=== PATIENT | male | born 1930 | race Caucasian/White ===

== ENCOUNTER → 2019-08-26 | Outpatient (CLI) | payer MEDICARE, OTHER ==
[2019-02-04 11:00] VITALS: BP 97/53
[~2019-08-26] MED LIST: ACET325T9 PO; ALBU2.5V5 NEB; AMIO200T4 PO; ASPI-630 PO; ASPI325T8 PO; ASPI81TA59 PO; ATOR20TA58 PO; ATOR40TA59 PO; CALC200T23 PO; CARV20CP PO; CARV3.12 PO; CARV3.1210 PO; CARV40CP PO; CEFTRIAXONE SODIUM IVP; CIME200T18 PO; CLOP75TA PO; DOCU-109 PO; DOXY100T PO; EPLE25TA PO; EPLE25TA4 PO; FINA5TAB PO; FINA5TAB4 PO; FLUT9.9S NS; FURO-68 PO; FURO-69 PO; FURO20TA3 PO; HYDR-2761 PO; IPRA3AMP29 NEB; LACT1CAP19 PO; LATA2.5D3 OP; LINZESS145 MCG PO; LISI-338 PO; MIRA25TA PO; MULT-18 PO; MULT1TAB52 PO; NAPH15DR60 OU; NITR0.4T22 SL; NITR0.4T24 SL; OMEG1CAP2 PO; PANT20TA2 PO; PANT40TA77 PO; PIPE2.255 IV; POLY17PO29 PO; POTA20TA40 PO; RAMI5CAP33 PO; RAMI5CAP50 PO; RANI150C PO; SIMV40TA18 PO; TAMS0.4C97 PO
[2019-08-26 10:13] LABS: BASO # 0.1 x10^3/uL (0.0-0.2); BASO % 1 % (0-3); EOS # 0.1 x10^3/uL (0.0-0.7); EOS % 1 % (0-3); HEMATOCRIT 36.2 % (39.0-53.0); LYMPH # 0.6 x10^3/uL (1.0-4.8); LYMPH % 9 % (24-48); MEAN CORPUSCULAR HEMOGLOBIN 31 pg (25-35); MEAN CORPUSCULAR HGB CONC 33 g/dL (31-37); MEAN CORPUSCULAR VOLUME 95 fL (79-100); MONO # 0.7 x10^3/uL (0.0-1.1); MONO % 10 % (0-9); NEUT % 80 % (31-73); PLATELET COUNT 288 x10^3/uL (140-400); RED BLOOD COUNT 3.83 x10^6/uL (4.30-5.70); RED CELL DISTRIBUTION WIDTH 15.2 % (11.5-14.5); WHITE BLOOD COUNT 7.5 x10^3/uL (4.0-11.0)
[2019-08-26 10:42] LABS: ALBUMIN 2.9 g/dL (3.4-5.0); CREATININE 1.1 mg/dL (0.7-1.3); POTASSIUM 4.3 mmol/L (3.5-5.1)
== END | disposition home or self-care (01) ==
LOC: SURGPAT 09:34
PROVIDERS: ATTEND Surgery
DX: Z01.818 Encounter for other preprocedural examination (principal); K40.90 Unilateral inguinal hernia, without obstruction or gangrene, not specified as recurrent
CPT/HCPCS: 36415; 80048; 82040; 85025

== ENCOUNTER 2019-09-03 08:37 | Day surgery (SDC) | payer MEDICARE, OTHER ==
[~2019-09-03] VITALS: Ht 170.2 cm; Wt 62.5 kg
[~2019-09-03 08:37] MED LIST changes: +HYDROmorphone 2 MG/ML VIAL IV PRN; +IV RINGERS,LACTATED 1000ML 1,000 ML IV SCH; +LIDOCAINE 1% PF 2 ML VIAL. ID PRN; +MORPHINE SULFATE 2 MG/ML VIAL. IV PRN; +ONDANSETRON PF 4 MG/2 ML VIAL. IV PRN; +PROCHLORPERAZINE 10 MG/2 ML VIAL. IV PRN; +ceFAZolin SODIUM IV Push 1 GM VIAL. IVP PRN; +fentaNYL PF VIAL 100 MCG/2 ML VIAL IV PRN
[2019-09-03] MEDS ORDERED: BUPIVACAINE-EPI 0.5%-1:200000 MPF 30 ML VIAL. ONE (10:07)
[2019-09-03] MEDS ORDERED: ETOMIDATE 20 MG/10 ML VIAL. IV ONE ×2 (11:10→11:37)
[2019-09-03] MEDS ORDERED: fentaNYL PF VIAL 100 MCG/2 ML VIAL ONE (11:11)
[2019-09-03] MEDS ORDERED: ePHEDrine PF IN SALINE 50 MG/10 ML SYRINGE. IV ONE (11:37)
[2019-09-03] MEDS ORDERED: PHENYLEPHRINE in 0.9% NACL PF 1 MG/10 ML SYRINGE. IV ONE (11:37)
[2019-09-03] MEDS ORDERED: DEXAMETHASONE SOD PHOS 4 MG/ML VIAL ONE (11:37)
[2019-09-03] MEDS ORDERED: ONDANSETRON PF 4 MG/2 ML VIAL. ONE (11:37)
[2019-09-03] MEDS ORDERED: LIDOCAINE 2% PF 5 ML VIAL. ONE (11:37)
[2019-09-03] MEDS ORDERED: SEVOFLURANE 61 TO 120 MINUTES. IH ONE (11:42)
[2019-09-03] MEDS ORDERED: SEVOFLURANE 31 TO 60 MINUTES. IH ONE (12:00)
[2019-09-03] MEDS ORDERED: HYDROcodone/APAP 5/325MG 1 TAB TABLET PO PRN (12:45)
--- NOTE | 2019-09-03 12:45 | DISCH ---
DISCHARGE INSTRUCTIONS Condition on Discharge Condition on Discharge: Stable Activity After Discharge Activity Instructions for Disc: Activity as tolerated, Avoid exertion Lifting Instructions after Dis: Do not lift >10 pounds Exercise Instruction after Dis: Progress as tolerated Driving Instructions after Dis: Do not drive Diet after Discharge Diet after Discharge: Cardiac Wound Incision Care Wound/Incision Care: May get incision wet Checks after Discharge Checks after discharge: Check blood press - daily Follow-Up Follow up with: Sacha two weeks in the [place] office NITHIN BRICE MD Sep 03, 2019 12:45
--- NOTE | 2019-09-03 12:51 | PDOC ---
BRIEF OPERATIVE NOTE Date: Sep 03, 2019 Pre-Op Diagnosis right inguinal hernia Post-Op Diagnosis same, indirect with a lax inguinal floor Procedure Performed repair with mesh Surgeon Sacha Anesthesia Type: General (LMA) Blood Loss 10cc IV Fluid 500cc Specimens Obtained none Findings indirect hernia, lax inguinal floor Complications none Operative Note Wk # [id number] NITHIN BRICE MD Sep 03, 2019 12:51
[2019-09-03 13:00] VITALS: BP 110/70
--- NOTE | 2019-09-03 13:02 | OP ---
DATE OF SURGERY: 09/03/2019 PREOPERATIVE DIAGNOSIS: Right inguinal hernia. POSTOPERATIVE DIAGNOSIS: Right inguinal hernia, indirect with a lax inguinal floor. PROCEDURE: Repair with mesh. SURGEON: Damián Brice MD TANK CLEANER: JESÚS Darling ANESTHESIA: General LMA. ESTIMATED BLOOD LOSS: 10 mL. INTRAVENOUS FLUIDS: 500 mL. DESCRIPTION OF PROCEDURE: The patient brought to the operating suite, given a general LMA and the right groin was prepped and draped in usual sterile fashion. A 0.5% Marcaine with epinephrine was infiltrated along the incision line. Incision made and dissection carried down to the external oblique fascia. Bleeders were cauterized or tied as identified. The cord was swept off the pubis. Christina drain placed around it and dissection carried back to the internal ring where a large indirect hernia sac was identified, skeletonized and reduced. It was held in reduction with an extra-large plug of Phasix mesh, tacked with 2-0 PDS, taking care to avoid injury to adjacent vessels. The laxity of the inguinal floor was imbricated with a running stitch of 0 Vicryl and a keyhole patch placed over it. A slit closed with a single 2-0 PDS stitch and the cord returned to its normal anatomical position after hemostasis was present. When a correct sponge count was obtained, the external oblique fascia was closed over the cord. The subcutaneous was approximated with 3-0 Vicryl and the skin was closed with subcuticular 4-0 Monocryl. Steri-Strips and sterile dressing applied. Prior to emergence from anesthesia, digital rectal exam revealed no abnormalities. The patient was awakened from his anesthetic and taken to the recovery room in satisfactory condition. DAMIÁN BRICE MD DR: SULAIMAN/mahsa JOB#: [id number] / [id number]
== END 2019-09-03 13:50 | disposition home or self-care (01) ==
LOC: SURG 08:37
PROVIDERS: ATTEND Surgery
DX: K40.90 Unilateral inguinal hernia, without obstruction or gangrene, not specified as recurrent (principal); Z88.8 Allergy status to other drugs, medicaments and biological substances; Z79.899 Other long term (current) drug therapy; Z98.890 Other specified postprocedural states; Z79.82 Long term (current) use of aspirin
CPT/HCPCS: 49505; J0171; J0690; J1100; J2001; J2370; J2405; J3010; J3490; A7015; C1781